=== PATIENT | female | born 1985 | race African-American/Black ===

== ENCOUNTER → 2018-01-30 | Outpatient (CLI) | payer OTHER, BC ==
[2018-01-31] MEDS: REGADENOSON 0.4 MG/5 ML DISP.SYRIN. IV (08:41)
== END | disposition home or self-care (01) ==
LOC: NM 07:21
DX: R07.89 Other chest pain (principal)
CPT/HCPCS: 78452; 93017; 93306; 96374; 96375; 96376; A9500; J2785

== ENCOUNTER 2018-07-06 07:13 | Emergency (ER) | payer OTHER ==
[~2018-07-06] VITALS: Ht 172.7 cm; Wt 124.7 kg
[~2018-07-06 07:13] MED LIST: ACET-704 PO; ACET325T9 PO; ACET500T33 PO; AMOX1TAB61 PO; HYDR-971 PO; IBUP200C PO; NAPR500T8 PO; PRED50TA PO; SILV20CR14 TP
--- NOTE | 2018-07-06 07:51 | PHYS DOC ---
Past Medical History Past Medical History: Seizure, Other Additional Past Medical Histor: PCOS, ECTOPIC PREGNANCIES,FALLOPIAN POLYPS Past Surgical History: Tubal ligation, Other Additional Past Surgical Histo: D&C,MULTIPLE LAPROSCOPIES, ectopic preg, gastric sleeve Alcohol Use: None Drug Use: None Adult General Chief Complaint Chief Complaint: DIZZY/LIGHT HEADED HPI HPI Patient is a 33 year old cc of lightheadedness. with standing feels dizyz and weak not getting enough oral fluids and hydration. She had a gastric sleeve last month she has had 30 pound weight loss she has no abdominal pain she says she just does not like to drink water she can drink tea which she is only urinating once a day when she stands up she gets lightheaded and dizzy some mild nausea but really no vomiting no fever no urinary symptoms no chest pain or shortness of breath. Review of Systems Review of Systems Constitutional: Denies fever or chills [] Eyes: Denies change in visual acuity, redness, or eye pain [] HENT: Denies nasal congestion or sore throat [] Respiratory: Denies cough or shortness of breath [] Cardiovascular: No additional information not addressed in HPI [] : Denies dysuria or hematuria [] Neurologic: Denies headache, focal weakness or sensory changes [] Endocrine: Denies polyuria or polydipsia [] All other systems were reviewed and found to be within normal limits, except as documented in this note. Current Medications Current Medications Current Medications Medications (Trade) Dose Ordered Sig/Ifrah Start Time Stop Time Status Last Admin Dose Admin Acetaminophen (Tylenol) 1,000 mg 1X ONCE 07/06/18 08:00 07/06/18 08:01 DC 07/06/18 08:13 1,000 MG Ondansetron HCl (Zofran) 4 mg 1X ONCE 07/06/18 08:00 07/06/18 08:01 DC 07/06/18 08:14 4 MG Sodium Chloride 1,000 ml @ 1,000 mls/hr 1X ONCE 07/06/18 09:15 07/06/18 10:14 DC Allergies Allergies Allergies Uncoded Allergies Type Severity Reaction Last Updated Verified CERTAIN SOAP (LAUNDRY) DETERGENTS Allergy Unknown HIVES/RASH 01/02/14 Physical Exam Physical Exam Constitutional: Well developed, well nourished, no acute distress, non-toxic appearance. [] HENT: Normocephalic, atraumatic, bilateral external ears normal, oropharynx DRY , no oral exudates, nose normal. [] Eyes: PERRLA, EOMI, conjunctiva normal, no discharge. [] Neck: Normal range of motion, no tenderness, supple, no stridor. [] Cardiovascular:Heart rate regular rhythm, no murmur [] Lungs & Thorax: Bilateral breath sounds clear to auscultation [] Abdomen: Bowel sounds normal, soft, no tenderness, no masses, no pulsatile masses. [] Skin: Warm, dry, no erythema, no rash. [] Back: No tenderness, no CVA tenderness. [] Extremities: No tenderness, no cyanosis, no clubbing, ROM intact, no edema. [] Neurologic: Alert and oriented X 3, normal motor function, normal sensory function, no focal deficits noted. [] Psychologic: Affect normal, judgement normal, mood normal. [] Current Patient Data Vital Signs Vital Signs Date Time Temp Pulse Resp B/P (MAP) Pulse Ox O2 Delivery O2 Flow Rate FiO2 07/06/18 07:42 97.6 60 16 127/62 (83) 96 Room Air 97.6 Lab Values Laboratory Tests Test 07/06/18 08:05 07/06/18 09:45 White Blood Count 5.7 x10^3/uL (4.0-11.0) Red Blood Count 4.37 x10^6/uL (3.50-5.40) Hemoglobin 13.8 g/dL (12.0-15.5) Hematocrit 39.4 % (36.0-47.0) Mean Corpuscular Volume 90 fL (79-100) Mean Corpuscular Hemoglobin 32 pg (25-35) Mean Corpuscular Hemoglobin Concent 35 g/dL (31-37) Red Cell Distribution Width 14.3 % (11.5-14.5) Platelet Count 243 x10^3/uL (140-400) Neutrophils (%) (Auto) 52 % (31-73) Lymphocytes (%) (Auto) 37 % (24-48) Monocytes (%) (Auto) 7 % (0-9) Eosinophils (%) (Auto) 3 % (0-3) Basophils (%) (Auto) 1 % (0-3) Neutrophils # (Auto) 3.0 x10^3uL (1.8-7.7) Lymphocytes # (Auto) 2.1 x10^3/uL (1.0-4.8) Monocytes # (Auto) 0.4 x10^3/uL (0.0-1.1) Eosinophils # (Auto) 0.2 x10^3/uL (0.0-0.7) Basophils # (Auto) 0.0 x10^3/uL (0.0-0.2) Sodium Level 142 mmol/L (136-145) Potassium Level 3.5 mmol/L (3.5-5.1) Chloride Level 106 mmol/L (98-107) Carbon Dioxide Level 26 mmol/L (21-32) Anion Gap 10 (6-14) Blood Urea Nitrogen 9 mg/dL (7-20) Creatinine 0.7 mg/dL (0.6-1.0) Estimated GFR (Cockcroft-Gault) 115.2 BUN/Creatinine Ratio 13 (6-20) Glucose Level 103 mg/dL (70-99) H Calcium Level 8.7 mg/dL (8.5-10.1) Total Bilirubin 0.8 mg/dL (0.2-1.0) Aspartate Amino Transferase (AST) 54 U/L (15-37) H Alanine Aminotransferase (ALT) 44 U/L (14-59) Alkaline Phosphatase 81 U/L (46-116) Total Protein 7.2 g/dL (6.4-8.2) Albumin 3.0 g/dL (3.4-5.0) L Albumin/Globulin Ratio 0.7 (1.0-1.7) L Lipase 217 U/L (73-393) Urine Collection Type Unknown Urine Color [place] Urine Clarity Clear Urine pH 6.0 Urine Specific [place] 1.020 Urine Protein Negative mg/dL (NEG-TRACE) Urine Glucose (UA) Negative mg/dL (NEG) Urine Ketones (Stick) Trace mg/dL (NEG) Urine Blood Large (NEG) Urine Nitrite Negative (NEG) Urine Bilirubin Small (NEG) Urine Urobilinogen Dipstick 4.0 mg/dL (0.2 mg/dL) Urine Leukocyte Esterase Small (NEG) Urine RBC 20-40 /HPF (0-2) Urine WBC 1-4 /HPF (0-4) Urine Squamous Epithelial Cells Mod /LPF Urine Bacteria 0 /HPF (0-FEW) Urine Mucus Mod /LPF Laboratory Tests 07/06/18 08:05 Laboratory Tests 07/06/18 08:05 EKG EKG [] Radiology/Procedures Radiology/Procedures [] Course & Med Decision Making Course & Med Decision Making Pertinent Labs and Imaging studies reviewed. (See chart for details) [] 33-year-old female presenting with lightheadedness she has had 30 pound weight loss 1 month after gastric sleeve her exam is normal her vitals are reassuring her labs are essentially normal as well she was hydrated and felt better she was encouraged to continue oral hydration and follow up with primary surgical team if symptoms persist. Dragon Disclaimer Dragon Disclaimer This electronic medical record was generated, in whole or in part, using a voice recognition dictation system. Departure Departure Impression: Primary Impression: Dehydration Disposition: 01 HOME, SELF-CARE Condition: STABLE Referrals: STEVEN VENTURA MD (PCP) PAZ SMALLWOOD MD Jul 06, 2018 07:51
[2018-07-06] MEDS ORDERED: ONDANSETRON PF 4 MG/2 ML VIAL. IV ONE (08:00)
[2018-07-06] MEDS ORDERED: IV NORMAL SALINE 1000ML BAG 1,000 ML IV ONE ×3 (08:00→09:15)
[2018-07-06] MEDS ORDERED: ACETAMINOPHEN 500 MG TABLET PO ONE (08:00)
[2018-07-06 08:25] LABS: BASO % 1 % (0-3); EOS # 0.2 x10^3/uL (0.0-0.7); EOS % 3 % (0-3); HEMATOCRIT 39.4 % (36.0-47.0); HEMOGLOBIN 13.8 g/dL (12.0-15.5); LYMPH # 2.1 x10^3/uL (1.0-4.8); LYMPH % 37 % (24-48); MEAN CORPUSCULAR HEMOGLOBIN 32 pg (25-35); MEAN CORPUSCULAR HGB CONC 35 g/dL (31-37); MEAN CORPUSCULAR VOLUME 90 fL (79-100); MONO # 0.4 x10^3/uL (0.0-1.1); MONO % 7 % (0-9); NEUT % 52 % (31-73); PLATELET COUNT 243 x10^3/uL (140-400); RED BLOOD COUNT 4.37 x10^6/uL (3.50-5.40); RED CELL DISTRIBUTION WIDTH 14.3 % (11.5-14.5); WHITE BLOOD COUNT 5.7 x10^3/uL (4.0-11.0)
[2018-07-06 08:27] LABS: CALCIUM 8.7 mg/dL (8.5-10.1); CREATININE 0.7 mg/dL (0.6-1.0); GFR 115.2; POTASSIUM 3.5 mmol/L (3.5-5.1)
[2018-07-06 08:41] LABS: ALBUMIN/GLOBULIN RATIO 0.7 (1.0-1.7); TOTAL BILIRUBIN 0.8 mg/dL (0.2-1.0); TOTAL PROTEIN 7.2 g/dL (6.4-8.2)
[2018-07-06 09:51] LABS: BILIRUBIN,URINE SMALL (NEG); CLARITY,URINE CLEAR; COLOR,URINE AMBER; NITRITE,URINE NEGATIVE (NEG); PROTEIN,URINE NEGATIVE (NEG-TRACE)
[2018-07-06 10:27] LABS: SQUAMOUS EPITHELIAL CELL,UR MOD /LPF
[2018-07-06 10:28] LABS: BACTERIA,URINE 0 /HPF (0-FEW); RBC,URINE 20-40 /HPF (0-2)
[2018-07-06 10:30] VITALS: BP 107/61
== END 2018-07-06 10:36 | disposition home or self-care (01) ==
LOC: ER 07:13
DX: E86.0 Dehydration (principal); Z88.8 Allergy status to other drugs, medicaments and biological substances
CPT/HCPCS: 36415; 80053; 81001; 83690; 85025; 87086; 96361; 96374; 99284; J2405; J7030

== ENCOUNTER 2019-12-07 16:36 | Emergency (ER) | payer OTHER ==
[~2019-12-07] VITALS: Ht 170.2 cm; Wt 107.0 kg
[~2019-12-07 16:36] MED LIST changes: +HYDR-3164 PO; -HYDR-971 PO
[2019-12-07] MEDS ORDERED: MORPHINE SULFATE 4 MG/ML VIAL. IV/SQ PRN (17:30)
[2019-12-07] MEDS ORDERED: ASPIRIN 325 MG TABLET PO ONE (17:30)
[2019-12-07] MEDS ORDERED: NITROGLYCERIN SUBLINGUAL 0.4 MG BOTTLE OF 25. SL PRN (17:30)
[2019-12-07 18:02] LABS: BASO % 0 % (0-3); EOS # 0.1 x10^3/uL (0.0-0.7); EOS % 1 % (0-3); HEMATOCRIT 40.2 % (36.0-47.0); HEMOGLOBIN 13.3 g/dL (12.0-15.5); LYMPH # 1.7 x10^3/uL (1.0-4.8); LYMPH % 15 % (24-48); MEAN CORPUSCULAR HEMOGLOBIN 28 pg (25-35); MEAN CORPUSCULAR HGB CONC 33 g/dL (31-37); MEAN CORPUSCULAR VOLUME 86 fL (79-100); MONO # 0.5 x10^3/uL (0.0-1.1); MONO % 5 % (0-9); NEUT # 9.3 x10^3/uL (1.8-7.7); NEUT % 80 % (31-73); PLATELET COUNT 258 x10^3/uL (140-400); RED BLOOD COUNT 4.69 x10^6/uL (3.50-5.40); RED CELL DISTRIBUTION WIDTH 13.3 % (11.5-14.5); WHITE BLOOD COUNT 11.7 x10^3/uL (4.0-11.0)
[2019-12-07 18:13] LABS: BILIRUBIN,URINE NEGATIVE (NEG); CLARITY,URINE CLEAR; COLOR,URINE YELLOW; NITRITE,URINE NEGATIVE (NEG); PROTEIN,URINE NEGATIVE (NEG-TRACE)
[2019-12-07 18:20] LABS: AMPHETAMINE/METHAMPHETAMINE NEG (NEG); BARBITURATES NEG (NEG); BENZODIAZEPINES NEG (NEG); CANNABINOIDS NEG (NEG); COCAINE NEG (NEG); METHADONE NEG (NEG); OPIATES NEG (NEG); PHENCYCLIDINE NEG (NEG)
[2019-12-07 18:20] LABS: CALCIUM 8.3 mg/dL (8.5-10.1); CREATININE 0.7 mg/dL (0.6-1.0); GFR 114.6; POTASSIUM 3.8 mmol/L (3.5-5.1)
[2019-12-07 18:25] LABS: ALBUMIN 3.2 g/dL (3.4-5.0); ALBUMIN/GLOBULIN RATIO 0.7 (1.0-1.7); MAGNESIUM 1.9 mg/dL (1.8-2.4); TOTAL BILIRUBIN 0.2 mg/dL (0.2-1.0); TOTAL PROTEIN 7.6 g/dL (6.4-8.2)
--- NOTE | 2019-12-07 18:34 | RAD ---
AP chest. HISTORY: Chest pain AP view was taken of the chest. Lungs are clear. Heart is normal in size. There is no pleural effusion. IMPRESSION: 1. No acute chest disease. Electronically signed by: Christiano Kunz MD (12/07/2019 6:32 PM) [id number]
[2019-12-07 18:35] LABS: CREATINE KINASE 70 U/L (26-192)
--- NOTE | 2019-12-07 18:55 | PHYS DOC ---
Past Medical History Past Medical History: Seizure, Other Additional Past Medical Histor: PCOS, ECTOPIC PREGNANCIES,FALLOPIAN POLYPS Past Surgical History: Tubal ligation, Other Additional Past Surgical Histo: D&C,MULTIPLE LAPROSCOPIES, ectopic preg, gastric sleeve Smoking Status: Former Smoker Alcohol Use: None Drug Use: None Adult General Chief Complaint Chief Complaint: CHEST PAIN HPI HPI Patient is a 34 year old female with a history of seizures who presents to the ED today with multiple complaints. She is complaining of chest pain and exposu re to COVID 19. Patient reports for the last 1 month she has had intermittent episodes of 8 out of 10 substernal chest pain nonradiating in nature . She reports the symptoms are worse after eating and got worse within the last 45 minutes. Patient denies any exacerbating or relieving factors. She reports diarrhea generalized abdominal discomfort for the last 1 month. She believes that she could have gallbladder disease. Off note she moved from [place] around November 21 2019 resides in a house with the father inlaw who tested positive for COVID19 around November 21, 2019 she reports she has quarantine herself for 14 days with no fever or cough. Review of Systems Review of Systems Constitutional: Denies fever or chills [] Eyes: Denies change in visual acuity, redness, or eye pain [] HENT: Denies nasal congestion or sore throat [] Respiratory: Denies cough or shortness of breath [] Cardiovascular: No additional information not addressed in HPI [] GI: reports abdominal pain with diarrhea, denies nausea, vomiting, bloody stools : Denies dysuria or hematuria [] Musculoskeletal: Denies back pain or joint pain [] Integument: Denies rash or skin lesions [] Neurologic: Denies headache, focal weakness or sensory changes [] All other systems were reviewed and found to be within normal limits, except as documented in this note. Current Medications Current Medications Current Medications Medications (Trade) Dose Ordered Sig/Ifrah Start Time Stop Time Status Last Admin Dose Admin Aspirin ([place] Aspirin) 325 mg 1X ONCE 12/07/19 17:30 12/07/19 17:31 Cancel Morphine Sulfate (Morphine Sulfate) 4 mg PRN Q15MIN PRN 12/07/19 17:30 12/08/19 17:29 Nitroglycerin (Nitrostat) 0.4 mg PRN Q5MIN PRN 12/07/19 17:30 12/08/19 17:29 Allergies Allergies Allergies Uncoded Allergies Type Severity Reaction Last Updated Verified CERTAIN SOAP (LAUNDRY) DETERGENTS Allergy Unknown HIVES/RASH 01/02/14 Physical Exam Physical Exam Constitutional: Well developed, well nourished, no acute distress, non-toxic appearance. [] HENT: Normocephalic, atraumatic, bilateral external ears normal, oropharynx moist, no oral exudates, nose normal. [] Eyes: PERRLA, EOMI, conjunctiva normal, no discharge. [] Neck: Normal range of motion, no tenderness, supple, no stridor. [] Cardiovascular:Heart rate regular rhythm, no murmur [] Lungs & Thorax: Bilateral breath sounds clear to auscultation [] Abdomen: Bowel sounds normal, soft, no tenderness, no masses, no pulsatile masses. [] Skin: Warm, dry, no erythema, no rash. [] Back: No tenderness, no CVA tenderness. [] Extremities: No tenderness, no cyanosis, no clubbing, ROM intact, no edema. [] Neurologic: Alert and oriented X 3, normal motor function, normal sensory function, no focal deficits noted. [] Psychologic: Affect normal, judgement normal, mood normal. [] Current Patient Data Vital Signs Vital Signs Date Time Temp Pulse Resp B/P (MAP) Pulse Ox O2 Delivery O2 Flow Rate FiO2 12/07/19 20:46 72 20 120/70 (87) 98 Room Air 12/07/19 16:55 98.0 98.0 Lab Values Laboratory Tests Test 12/07/19 17:45 12/07/19 18:00 12/07/19 18:45 White Blood Count 11.7 x10^3/uL (4.0-11.0) H Red Blood Count 4.69 x10^6/uL (3.50-5.40) Hemoglobin 13.3 g/dL (12.0-15.5) Hematocrit 40.2 % (36.0-47.0) Mean Corpuscular Volume 86 fL (79-100) Mean Corpuscular Hemoglobin 28 pg (25-35) Mean Corpuscular Hemoglobin Concent 33 g/dL (31-37) Red Cell Distribution Width 13.3 % (11.5-14.5) Platelet Count 258 x10^3/uL (140-400) Neutrophils (%) (Auto) 80 % (31-73) H Lymphocytes (%) (Auto) 15 % (24-48) L Monocytes (%) (Auto) 5 % (0-9) Eosinophils (%) (Auto) 1 % (0-3) Basophils (%) (Auto) 0 % (0-3) Neutrophils # (Auto) 9.3 x10^3/uL (1.8-7.7) H Lymphocytes # (Auto) 1.7 x10^3/uL (1.0-4.8) Monocytes # (Auto) 0.5 x10^3/uL (0.0-1.1) Eosinophils # (Auto) 0.1 x10^3/uL (0.0-0.7) Basophils # (Auto) 0.0 x10^3/uL (0.0-0.2) Sodium Level 136 mmol/L (136-145) Potassium Level 3.8 mmol/L (3.5-5.1) Chloride Level 104 mmol/L (98-107) Carbon Dioxide Level 24 mmol/L (21-32) Anion Gap 8 (6-14) Blood Urea Nitrogen 12 mg/dL (7-20) Creatinine 0.7 mg/dL (0.6-1.0) Estimated GFR (Cockcroft-Gault) 114.6 BUN/Creatinine Ratio 17 (6-20) Glucose Level 114 mg/dL (70-99) H Calcium Level 8.3 mg/dL (8.5-10.1) L Magnesium Level 1.9 mg/dL (1.8-2.4) Ferritin 14 ng/mL (8-252) Total Bilirubin 0.2 mg/dL (0.2-1.0) Aspartate Amino Transferase (AST) 28 U/L (15-37) Alanine Aminotransferase (ALT) 14 U/L (14-59) Alkaline Phosphatase 111 U/L (46-116) Creatine Kinase 70 U/L (26-192) Creatine Kinase MB (Mass) < 0.5 ng/mL (0.0-3.6) Creatine Kinase MB Relative Index % (0-4) Troponin I Quantitative < 0.017 ng/mL (0.000-0.055) C-Reactive Protein, Quantitative 5.2 mg/L (0-3.3) H IV-Dun-G-Type Natriuretic Peptide 73 pg/mL (0-124) Total Protein 7.6 g/dL (6.4-8.2) Albumin 3.2 g/dL (3.4-5.0) L Albumin/Globulin Ratio 0.7 (1.0-1.7) L Lipase 231 U/L (73-393) Procalcitonin < 0.10 ng/mL (0.00-0.10) Thyroid Stimulating Hormone (TSH) 1.302 uIU/mL (0.358-3.74) Urine Collection Type Unknown Urine Color Yellow Urine Clarity Clear Urine pH 6.0 (<5.0-8.0) Urine Specific [place] 1.025 (1.000-1.030) Urine Protein Negative mg/dL (NEG-TRACE) Urine Glucose (UA) Negative mg/dL (NEG) Urine Ketones (Stick) Negative mg/dL (NEG) Urine Blood Negative (NEG) Urine Nitrite Negative (NEG) Urine Bilirubin Negative (NEG) Urine Urobilinogen Dipstick 1.0 mg/dL (0.2 mg/dL) Urine Leukocyte Esterase Negative (NEG) Urine RBC 0 /HPF (0-2) Urine WBC Occ /HPF (0-4) Urine Squamous Epithelial Cells Few /LPF Urine Bacteria Few /HPF (0-FEW) Urine Mucus Mod /LPF Urine Opiates Screen Neg (NEG) Urine Methadone Screen Neg (NEG) Urine Barbiturates Neg (NEG) Urine Phencyclidine Screen Neg (NEG) Urine Amphetamine/Methamphetamine Neg (NEG) Urine Benzodiazepines Screen Neg (NEG) Urine Cocaine Screen Neg (NEG) Urine Cannabinoids Screen Neg (NEG) Urine Ethyl Alcohol Neg (NEG) Prothrombin Time 12.8 SEC (11.7-14.0) Prothrombin Time INR 1.0 (0.8-1.1) Laboratory Tests 12/07/19 17:45 Laboratory Tests 12/07/19 17:45 EKG EKG [address] Albrecht sinus rhythm HR 60 no STEMI Radiology/Procedures Radiology/Procedures []PROCEDURE: ABDOMEN LTD Ultrasound of the abdomen limited. HISTORY: Abdominal pain ultrasound was used to evaluate the liver, gallbladder and right upper quadrant. Pancreas was obscured. Aorta and vena cava proximally were normal. Distal aorta was poorly seen. Liver was incompletely evaluated. There are multiple gallstones in the gallbladder. Gallbladder wall was mildly thickened at 4 mm. Common duct was normal measuring 5 mm. Right kidney was 11.4 cm in length without a mass or hydronephrosis. IMPRESSION: 1. Cholelithiasis with mild thickening of the gallbladder wall. 2. Poor visualization of the pancreas. 3. Poor visualization of the liver. 4. No right hydronephrosis. Electronically signed by: Christiano Kunz MD (12/07/2019 8:26 PM) [id number] DICTATED and SIGNED BY: CHRISTIANO KUZN MD DATE: 12/07/192025 PROCEDURE: PORTABLE CHEST 1V AP chest. HISTORY: Chest pain AP view was taken of the chest. Lungs are clear. Heart is normal in size. There is no pleural effusion. IMPRESSION: 1. No acute chest disease. Electronically signed by: Christiano Kunz MD (12/07/2019 6:32 PM) [id number] DICTATED and SIGNED BY: CHRISTIANO KUNZ MD DATE: 12/07/191831 Course & Med Decision Making Course & Med Decision Making Pertinent Labs and Imaging studies reviewed. (See chart for details) This is a 34-year-old female patient presenting to the ED today complaining of chest pain as well as diarrhea and abdominal pain, symptoms for 1 month concerned she could have gallstones. EKG interpreted by Dr. Albrecht is negative, heart score is negative, UA is negative, CBC with a WBC of 11.7, CMP with no acute findings. Chest x-ray is negative. Heart score is 0. Right upper quadrant ultrasound noted for cholelithiasis. Patient was provided general surgery for follow-up. Discharged home. Dragon Disclaimer Dragon Disclaimer This electronic medical record was generated, in whole or in part, using a voice recognition dictation system. The HEART Score for CP Pts HEART Score for Chest Pain: HEART Score for Chest Pain Response (Comments) Value History Slighlty/Non-Suspicious 0 ECG Normal 0 Age < 45 0 Risk Factors No Risk Factors 0 Troponin < Normal Limit 0 Total 0 Risk Factors: Risk Factors: DM, Current or recent (<one month) smoker, HTN, HLP, family history of CAD, obesity. Risk Scores: Score 0 - 3: 2.5% MACE over next 6 weeks - Discharge Home Score 4 - 6: 20.3% MACE over next 6 weeks - Admit for Clinical Observation Score 7 - 10: 72.7% MACE over next 6 weeks - Early Invasive Strategies Departure Departure Impression: Primary Impression: Gallstones Additional Impression: Chest pain Disposition: 01 HOME, SELF-CARE Condition: STABLE Referrals: STEVEN VENTURA MD (PCP) follow up with your doctor next week ALE LANGE MD follow up next week for gallstones SARAH BETH MANRIQUE MD follow up next week Patient Instructions: Chest Pain (Nonspecific)-Brief, Cholelithiasis Additional Instructions: You have gall stones. Please follow up with the provided general surgeon. Please follow up with your primary care doctor and the provided advice nurse as well. Problem Qualifiers NAHED FLORES HOTEL ADMINISTRATIVE ASSISTANT Dec 07, 2019 18:55
[2019-12-07 18:59] LABS: BACTERIA,URINE FEW /HPF (0-FEW); RBC,URINE 0 /HPF (0-2); SQUAMOUS EPITHELIAL CELL,UR FEW /LPF
[2019-12-07 19:01] LABS: WBC,URINE OCC /HPF (0-4)
[2019-12-07 19:02] LABS: C-REACTIVE PROTEIN 5.2 mg/L (0-3.3)
[2019-12-07 19:07] LABS: PROTHROMBIN TIME PATIENT 12.8 SEC (11.7-14.0)
--- NOTE | 2019-12-07 19:54 | EKG ---
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
--- NOTE | 2019-12-07 20:29 | RAD ---
Ultrasound of the abdomen limited. HISTORY: Abdominal pain ultrasound was used to evaluate the liver, gallbladder and right upper quadrant. Pancreas was obscured. Aorta and vena cava proximally were normal. Distal aorta was poorly seen. Liver was incompletely evaluated. There are multiple gallstones in the gallbladder. Gallbladder wall was mildly thickened at 4 mm. Common duct was normal measuring 5 mm. Right kidney was 11.4 cm in length without a mass or hydronephrosis. IMPRESSION: 1. Cholelithiasis with mild thickening of the gallbladder wall. 2. Poor visualization of the pancreas. 3. Poor visualization of the liver. 4. No right hydronephrosis. Electronically signed by: Christiano Kunz MD (12/07/2019 8:26 PM) [id number]
[2019-12-07 20:46] VITALS: BP 120/70
--- NOTE | 2019-12-07 23:21 | EKG ---
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
== END 2019-12-07 20:58 | disposition home or self-care (01) ==
LOC: ER 16:36
DX: K80.80 Other cholelithiasis without obstruction (principal); R19.7 Diarrhea, unspecified; Z87.891 Personal history of nicotine dependence; Z88.8 Allergy status to other drugs, medicaments and biological substances
CPT/HCPCS: 36415; 71045; 76705; 80053; 80307; 81001; 82553; 82728; 83690; 83735; 83880; 84145; 84443; 84484; 85025; 85610; 86140; 87040; 93005; 99285-25

== ENCOUNTER 2020-07-26 21:29 | Emergency (ER) | payer OTHER ==
[~2020-07-26] VITALS: Ht 172.7 cm; Wt 102.7 kg
[2020-07-26] MEDS ORDERED: METH4TAB2 PO (22:53)
[2020-07-26] MEDS ORDERED: ALBU2.5V8 IH (22:53)
[2020-07-26] MEDS ORDERED: AZIT250T6 PO (22:53)
--- NOTE | 2020-07-26 22:54 | ED.ADGEN ---
Past Medical History Past Medical History: Endometriosis, Ectopic , Seizure, Other Additional Past Medical Histor: PCOS, last sz immediately post-gastric sleeve in 2018 Past Surgical History: Gastric Bypass, Tubal ligation Additional Past Surgical Histo: D&C,MULTIPLE LAPROSCOPIES, ectopic preg, gastric sleeve Smoking Status: Never Smoker Alcohol Use: None Drug Use: None General Adult EDM: Chief Complaint: CHEST PAIN HPI: HPI: Patient is a 35 year old AA female who presents emergency department with complaints of chest tightness, runny nose, body aches, headache, chills, nasal congestion, fatigue, and loss of smell and taste. Patient reports that she had an exposure to Covid positive family on July 142019. Patient reports that last week on the she had a test for Covid that was negative. She states for the last 5 days her chest tightness has become constant. She reports that the tightness in her chest does not radiate anywhere. She denies any palpitations or syncope. She denies any abdominal pain, nausea, vomiting, or diarrhea. Patient states she has not measured a fever but she has had chills and sweats. She currently rates her discomfort a 5 out of 10 on the pain scale, she denies any alleviating or exacerbating factors. Review of Systems: Review of Systems: Complete ROS is negative unless otherwise noted in HPI. Allergies: Allergies: Allergies Uncoded Allergies Type Severity Reaction Last Updated Verified CERTAIN SOAP (LAUNDRY) DETERGENTS Allergy Unknown HIVES/RASH 01/02/14 Physical Exam: PE: See Above Constitutional: Well developed, well nourished, no acute distress, non-toxic appearance, obese. [] HENT: Normocephalic, atraumatic, bilateral external ears normal, nose normal. [] Eyes: PERRLA, EOMI, conjunctiva normal, no discharge. [] Neck: Normal range of motion, no stridor. [] Cardiovascular:Heart rate regular rhythm Lungs & Thorax: Respirations even and unlabored, no retractions, no respiratory distress Skin: Warm, dry, no erythema, no rash. [] Extremities: No cyanosis, ROM intact, no edema. [] Neurologic: Alert and oriented X 3, no focal deficits noted. [] Psychologic: Affect normal, judgement normal, mood normal. [] Current Patient Data: Vital Signs: Vital Signs Date Time Temp Pulse Resp B/P (MAP) Pulse Ox O2 Delivery O2 Flow Rate FiO2 07/26/20 22:30 67 110/62 (78) 99 Room Air 07/26/20 21:50 98.7 20 98.7 EKG: EK-sinus rhythm, rate 63, no STEMI, read by Dr. Dixon. [] Heart Score: Risk Factors: Risk Factors: DM, Current or recent (<one month) smoker, HTN, HLP, family history of CAD, obesity. Risk Scores: Score 0 - 3: 2.5% MACE over next 6 weeks - Discharge Home Score 4 - 6: 20.3% MACE over next 6 weeks - Admit for Clinical Observation Score 7 - 10: 72.7% MACE over next 6 weeks - Early Invasive Strategies Radiology/Procedures: Radiology/Procedures: Chest x-ray was concerning for patchy infiltrates concerning for COVID-[address] Dixon [] Course & Med Decision Making: Course & Med Decision Making Pertinent Labs and Imaging studies reviewed. (See chart for details) 35-year-old female presents to the emergency department with complaints of chest tightness for the last 5 days patient reported a recent Covid exposure within the last 2 weeks. HPI is most consistent with URI/COVID-19. Not concerning for ACS EKG revealed no STEMI or other acute finding Chest x-ray is concerning for COVID-19. The patient's vital signs were stable throughout her stay, oxygen saturation remained 98% or above on room air. Prescriptions were written for an albuterol inhaler, Z-Robin, and a Medrol Dosepak. The patient was provided with COVID-19 quarantine instructions and she was advised that her entire family needs to quarantine now. A COVID-19 nasal swab was sent and is pending. Patient verbalized an understanding of home care, medications, follow-up, and return to ED instructions and was in agreement with the plan of care. [] Dragon Disclaimer: Dragon Disclaimer: This electronic medical record was generated, in whole or in part, using a voice recognition dictation system. Departure Departure Impression: Primary Impression: Chest tightness Additional Impression: Person under investigation for COVID-19 Disposition: 01 DC HOME SELF CARE/HOMELESS Condition: STABLE Referrals: STEVEN VENTURA MD (PCP) Patient Instructions: Upper Respiratory Infection, Adult, [id number] Additional Instructions: Fill the prescriptions and use them as directed. Follow the following COVID-19 instructions. Return to the emergency room if your symptoms worsen. You have been tested for or diagnosed with COVID-19. It is an infection caused by a new type of coronavirus. COVID-19 will cause cold-like or mild flu symptoms in most. It can cause more severe symptoms like problems breathing in some. There is no treatment for COVID-19. The body will clear the infection over time. Self-care will help to ease discomfort. Steps to Take: Self-Care Rest as needed. Healthy habits may help you feel better. Steps include: Choose healthy foods including fruits and vegetables. Drink water throughout the day. Get plenty of sleep each night. If you smoke, try to quit. It may ease breathing. Avoid alcohol. Keep Others Healthy The virus can spread to others. Droplets are released every time you sneeze or cough. The droplets can get into the mouth, nose, or eyes of people near you and lead to infection. To lower the chances of spreading COVID-19 to others: Stay at home until your doctor has said it is safe to leave. If you tested positive this will mean staying isolated until both of the following are true: At least 7 days have passed since the start of illness. You are free of fever for at least 72 hours without the use of medicine. During this time: - Avoid public areas, events, or transportation. Do not return to work or school until your doctor has said it is safe to do so. - Call ahead if you need to go to a medical center. Let them know you may have COVID-19. It will help them guide you where to go. They may also ask you to wear a facemask when you come to the office. - If you call for emergency medical services, let them know you may have COVID- 19. While at home: - Try to avoid close contact with others. Stay about 6 feet away. - If possible, spend most of your time in a separate room from others. - Use a face mask if you will be in close contact with others such as sharing a room or vehicle. - Have someone wipe down common surfaces in the home. Use household executive steward every day on areas like doorknobs, counters, or sinks. - Cough or sneeze into a tissue. Throw the tissue away right after use. If a tissue is not available, cough or sneeze into your elbow. - Wash your hands often. Wash them after sneezing or coughing. Use soap and water and wash for at least 20 seconds. Alcohol based hand bisque cleaner can be used if soap and water is not available. - Do not prepare food for others. Avoid sharing personal items like forks, spoons, or toothbrushes. - Avoid close contact with pets while you are sick. There is no evidence of the virus passing to pets. This is a safety step until more is known about this virus. Isolation can be frustrating. Social interaction can help. Keep in touch with friends and family through phone and tech options. You can still interact with others in your home, just keep a safe distance of about 6 feet. Follow-up: Your doctors office will check in with you to see if there are any changes in your health. You may be asked to keep track of symptoms to share with them. They will also let you know when you are clear to be in public again. Problems to Look Out For: Contact your doctor if your recovery is not going as you expect. Get emergency care if you have problems such as: - Trouble breathing - Nonstop chest pain or pressure - Changes in awareness, confusion, or problems waking - Lips or face have bluish color - Worsening of symptoms If you think you have an emergency, call for emergency medical services right away. As taken from [facility] [place] [facility] Methylprednisolone (MEDROL) 4 Mg Tab.ds.pk 1 PKG PO UD for 6 Days, #1 PKG 0 Refills Prov: BRYAN ECHAVARRIA APRN 07/26/20 Azithromycin (AZITHROMYCIN TABLET) 250 Mg Tablet 1 PKG PO UD for 5 Days, #6 TAB 0 Refills 2 the first day followed by 1 for days 2-5 Prov: BRYAN ECHAVARRIA APRN 07/26/20 Albuterol Sulfate (Proair Hfa) 8.5 Gm Hfa.aer.ad 2 PUFF IH PRN Q4-6HRS PRN for wheezing for 21 Days, #1 INHALER 0 Refills dispense with spacer please Prov: BRYAN ECHAVARRIA APRN 07/26/20 Problem Qualifiers BYRAN ECHAVARRIA APRN Jul 26, 2020 22:53
[2020-07-26 23:10] VITALS: BP 117/62
--- NOTE | 2020-07-26 23:49 | RAD ---
INDICATION: Reason: chest tightness, PUI/PREG TEST / Spl. Instructions: / History: COMPARISON: December 07, 2019 FINDINGS: Single view of chest obtained. No focal airspace consolidation. Cardiomediastinal contour unremarkable. No acute osseous abnormality. IMPRESSION: * No focal airspace consolidation or edema. Electronically signed by: Donnell Valente MD (07/26/2020 11:46 PM) [id number]
--- NOTE | 2020-07-29 08:36 | NUR ---
IP: Informed pt of positive COVID results and need to quarantine for 14 days. Pt verbalized understanding.
== END 2020-07-26 23:15 | disposition home or self-care (01) ==
LOC: ER 21:29
DX: U07.1 COVID-19 (principal); R07.89 Other chest pain; R09.89 Other specified symptoms and signs involving the circulatory and respiratory systems; R53.83 Other fatigue; R09.81 Nasal congestion; Z98.51 Tubal ligation status; Z98.890 Other specified postprocedural states; Z88.8 Allergy status to other drugs, medicaments and biological substances
CPT/HCPCS: 71045; 99284; U0003; C9803